=== PATIENT | female | born 1945 | race Caucasian/White ===

== ENCOUNTER 2022-10-07 11:51 | Emergency (ER) | payer MEDICARE, OTHER ==
[2022-10-07] MEDS ORDERED: Sodium Chloride 0.9% 10 ML Syringe FLUSH PRN (11:55)
[2022-10-07 12:25] LABS: ESTIMATED GFR 65 mL/min (>60)
[2022-10-07 12:43] VITALS: PULSE 62
[2022-10-07 13:10] VITALS: BP 154/79
== END 2022-10-07 13:10 | disposition home or self-care (01) ==
LOC: FB.ED 11:51
DX: K21.9 Gastro-esophageal reflux disease without esophagitis (principal); Z87.891 Personal history of nicotine dependence
CPT/HCPCS: 36415; 71045; 80053; 84484; 85025; 85379; 86140; 93005; 99285